=== PATIENT | female | born 1940 | race Caucasian/White ===

== ENCOUNTER 2016-05-16 12:57 | Outpatient (CLI) | payer MEDICARE, OTHER | END 2016-05-16 23:59 | DX: Z00.00 Encounter for general adult medical examination without abnormal findings (principal); I10 Essential (primary) hypertension; R07.89 Other chest pain ==

== ENCOUNTER 2016-06-03 12:04 | Outpatient (CLI) | payer MEDICARE, OTHER | END 2016-06-03 12:05 | disposition home or self-care (01) | DX: Z12.31 Encounter for screening mammogram for malignant neoplasm of breast (principal); Z80.3 Family history of malignant neoplasm of breast ==

== ENCOUNTER 2016-07-29 13:00 | Outpatient (CLI) | payer MEDICARE, OTHER | END 2016-07-29 13:01 | disposition home or self-care (01) | DX: M81.0 Age-related osteoporosis without current pathological fracture (principal) ==